=== PATIENT | female | born 1975 | race Caucasian/White ===

== ENCOUNTER 2016-07-09 10:45 | Emergency (ER) | payer MEDICAID ==
[~2016-07-09] VITALS: Ht 154.9 cm; Wt 63.5 kg
[~2016-07-09 10:45] MED LIST: AMOXICILLIN250 M2 PO; KEFLEX250 MG PO; PEPCID20 M1 PO; PRENATAL VITAMI1 TA6 PO; REGLAN10 MG PO
--- NOTE | 2016-07-09 10:53 | NUR ---
PT AMBULATED TO BED 3.
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
[2016-07-09 11:00] VITALS: BP 103/65
--- NOTE | 2016-07-09 11:43 | NUR ---
Nathalie AT BEDSIDE.
[2016-07-09] MEDS ORDERED: ONDANSETRON 4 MG ODT PO ONE (11:45)
--- NOTE | 2016-07-09 11:54 | NUR ---
MEDICATION ADMINISTERED ORDERED.
[2016-07-09 12:20] VITALS: BP 111/69
--- NOTE | 2016-07-09 12:21 | NUR ---
Patient discharged with v/s stable. Written and verbal after care instructions given and explained. Patient alert, oriented and verbalized understanding of instructions. Ambulatory with steady gait. All questions addressed prior to discharge. ID band removed. Patient advised to follow up with PMD. Rx of ZOFRAN, MOTRIN, DICLOXACILLIN given. Patient educated on indication of medication including possible reaction and side effects. Opportunity to ask questions provided and answered.
== END 2016-07-09 12:21 | disposition home or self-care (01) ==
LOC: MED 10:46
DX: N61.0 Mastitis without abscess (principal)
CPT/HCPCS: 81002; 81025; 99283; S0119